=== PATIENT | female | born 1945 | race Caucasian/White ===

== ENCOUNTER 2016-04-10 09:00 | Outpatient (RCR) | payer MEDICARE, OTHER ==
[2016-01-11 05:12] VITALS: BP 141/68
[~2016-04-10 09:00] MED LIST: LANTUS100 U/ML SC; LISINOPRIL20 MG PO; NEXIUM; SYNTHROID25 MCG PO; [UNRECOGNIZED DRUG - OTHER] PO
[2016-06-14] MEDS ORDERED: CITALOPRAM40 MG PO (20:36)
[2016-06-14] MEDS ORDERED: AMITRIPTYLINE H50 M1 PO (20:36)
== END 2016-06-21 | disposition home or self-care (01) ==
LOC: PT
DX: Z47.89 Encounter for other orthopedic aftercare (principal)

== ENCOUNTER 2016-06-14 20:46 | Emergency (ER) | payer MEDICARE, OTHER ==
[~2016-06-14 20:46] MED LIST changes: +AMITRIPTYLINE H50 M1 PO; +CITALOPRAM40 MG PO
== END 2016-06-14 22:26 | disposition home or self-care (01) ==
LOC: ED 20:46
DX: S01.01XA Laceration without foreign body of scalp, initial encounter (principal); S50.02XA Contusion of left elbow, initial encounter; Z91.81 History of falling; W19.XXXA Unspecified fall, initial encounter; Y92.018 Other place in single-family (private) house as the place of occurrence of the external cause

== ENCOUNTER 2016-06-28 09:28 | Outpatient (RCR) | payer MEDICARE, OTHER ==
[2016-06-14 23:56] VITALS: BP 150/89
== END 2016-08-30 10:27 | disposition home or self-care (01) ==
LOC: PT 09:28
DX: Z47.89 Encounter for other orthopedic aftercare (principal); M25.571 Pain in right ankle and joints of right foot

== ENCOUNTER 2017-04-25 09:06 | Outpatient (RCR) | payer MEDICARE, OTHER ==
[2016-06-14 23:56] VITALS: BP 150/89
== END 2017-05-03 12:58 ==
LOC: OPPGERO 09:06
DX: F33.2 Major depressive disorder, recurrent severe without psychotic features (principal); F41.1 Generalized anxiety disorder

== ENCOUNTER 2017-05-04 09:00 | Outpatient (RCR) | payer MEDICARE, OTHER ==
[2016-06-14 23:56] VITALS: BP 150/89
== END 2017-06-01 15:33 ==
LOC: OPPGERO 09:00
DX: F33.2 Major depressive disorder, recurrent severe without psychotic features (principal)

== ENCOUNTER 2017-06-05 09:00 | Outpatient (RCR) | payer MEDICARE, OTHER ==
[2016-06-14 23:56] VITALS: BP 150/89
== END 2017-07-04 15:22 ==
LOC: OPPGERO 09:00
DX: F33.2 Major depressive disorder, recurrent severe without psychotic features (principal)

== ENCOUNTER 2017-07-05 10:41 | Outpatient (RCR) | payer MEDICARE, OTHER ==
[2016-06-14 23:56] VITALS: BP 150/89
== END 2017-08-01 14:16 ==
LOC: OPPGERO 10:41
DX: F33.2 Major depressive disorder, recurrent severe without psychotic features (principal); F41.1 Generalized anxiety disorder; E11.9 Type 2 diabetes mellitus without complications; Z79.4 Long term (current) use of insulin; E03.9 Hypothyroidism, unspecified; I10 Essential (primary) hypertension; Z88.1 Allergy status to other antibiotic agents; Z88.2 Allergy status to sulfonamides; Z88.8 Allergy status to other drugs, medicaments and biological substances

== ENCOUNTER 2017-08-02 10:13 | Outpatient (RCR) | payer MEDICARE, OTHER ==
[2016-06-14 23:56] VITALS: BP 150/89
== END 2017-08-31 11:16 ==
LOC: OPPGERO 10:13
DX: F33.2 Major depressive disorder, recurrent severe without psychotic features (principal); F41.1 Generalized anxiety disorder; I10 Essential (primary) hypertension; E03.9 Hypothyroidism, unspecified; E11.9 Type 2 diabetes mellitus without complications; Z79.4 Long term (current) use of insulin; Z90.5 Acquired absence of kidney; Z98.84 Bariatric surgery status; Z88.1 Allergy status to other antibiotic agents; Z88.8 Allergy status to other drugs, medicaments and biological substances; Z88.2 Allergy status to sulfonamides

== ENCOUNTER 2017-09-03 09:05 | Outpatient (RCR) | payer MEDICARE, OTHER ==
[2016-06-14 23:56] VITALS: BP 150/89
== END 2017-10-01 13:12 ==
LOC: OPPGERO 09:05
DX: F33.2 Major depressive disorder, recurrent severe without psychotic features (principal); F41.1 Generalized anxiety disorder; E11.65 Type 2 diabetes mellitus with hyperglycemia; Z79.4 Long term (current) use of insulin; I10 Essential (primary) hypertension; Z98.84 Bariatric surgery status; Z90.5 Acquired absence of kidney; E03.9 Hypothyroidism, unspecified; Z88.1 Allergy status to other antibiotic agents; Z88.2 Allergy status to sulfonamides; Z88.8 Allergy status to other drugs, medicaments and biological substances

== ENCOUNTER 2017-10-02 08:44 | Outpatient (RCR) | payer MEDICARE, OTHER ==
[2016-06-14 23:56] VITALS: BP 150/89
== END 2017-11-01 13:36 ==
LOC: OPPGERO 08:44
DX: F33.2 Major depressive disorder, recurrent severe without psychotic features (principal); F41.1 Generalized anxiety disorder; E11.9 Type 2 diabetes mellitus without complications; Z79.4 Long term (current) use of insulin; E03.9 Hypothyroidism, unspecified; I10 Essential (primary) hypertension; Z90.5 Acquired absence of kidney; Z98.890 Other specified postprocedural states; Z79.899 Other long term (current) drug therapy

== ENCOUNTER 2017-11-02 08:23 | Outpatient (RCR) | payer MEDICARE, OTHER ==
[2016-06-14 23:56] VITALS: BP 150/89
== END 2017-11-30 13:06 ==
LOC: OPPGERO 08:23
DX: F33.2 Major depressive disorder, recurrent severe without psychotic features (principal); F41.1 Generalized anxiety disorder; E11.9 Type 2 diabetes mellitus without complications; I10 Essential (primary) hypertension; Z79.4 Long term (current) use of insulin; Z79.899 Other long term (current) drug therapy; Z98.84 Bariatric surgery status; Z90.5 Acquired absence of kidney; Z74.9 Problem related to care provider dependency, unspecified; Z60.0 Problems of adjustment to life-cycle transitions

== ENCOUNTER 2017-12-03 09:36 | Outpatient (RCR) | payer MEDICARE, OTHER ==
[2016-06-14 23:56] VITALS: BP 150/89
== END 2018-01-01 14:17 ==
LOC: OPPGERO 09:36
DX: F33.1 Major depressive disorder, recurrent, moderate (principal); F41.1 Generalized anxiety disorder; E11.9 Type 2 diabetes mellitus without complications; I10 Essential (primary) hypertension; E03.9 Hypothyroidism, unspecified; Z98.84 Bariatric surgery status; Z90.5 Acquired absence of kidney; Z63.6 Dependent relative needing care at home; Z79.4 Long term (current) use of insulin; Z79.899 Other long term (current) drug therapy

== ENCOUNTER 2018-01-02 09:27 | Outpatient (RCR) | payer MEDICARE, OTHER ==
[2016-06-14 23:56] VITALS: BP 150/89
== END 2018-02-01 13:55 ==
LOC: OPPGERO 09:27
DX: F33.2 Major depressive disorder, recurrent severe without psychotic features (principal); F41.1 Generalized anxiety disorder; Z74.9 Problem related to care provider dependency, unspecified; E11.9 Type 2 diabetes mellitus without complications; E03.9 Hypothyroidism, unspecified; Z90.5 Acquired absence of kidney; I10 Essential (primary) hypertension; Z79.899 Other long term (current) drug therapy; Z79.4 Long term (current) use of insulin; Z98.84 Bariatric surgery status

== ENCOUNTER 2019-05-14 09:14 | Outpatient (RCR) | payer MEDICARE, OTHER ==
[2019-04-09 19:50] VITALS: BP 121/57
[~2019-05-14 09:14] MED LIST changes: +ESCITALOPRAM20 MG PO; +FOLIC ACID1 MG PO; +LANTUS PEN100 U/ML SQ; -LANTUS100 U/ML SC; +LOSARTAN POTASS50 M1 PO; +METHOTREXATE2.5 MG PO; +MYRBETRIQ50 MG PO; -NEXIUM; +NEXIUM20 MG PO; +NOVOLOG FLEX100 U/ML SQ; +SYNTHROID RP0.1 MG PO; -SYNTHROID25 MCG PO; +WELLBUTRIN XL150 M2 PO
== END 2019-06-03 12:46 ==
LOC: OPPGERO 09:14
DX: F39 Unspecified mood [affective] disorder (principal); M05.79 Rheumatoid arthritis with rheumatoid factor of multiple sites without organ or systems involvement; L40.9 Psoriasis, unspecified; I10 Essential (primary) hypertension; E11.9 Type 2 diabetes mellitus without complications; I25.10 Atherosclerotic heart disease of native coronary artery without angina pectoris; Z79.4 Long term (current) use of insulin; Z79.82 Long term (current) use of aspirin; Z79.01 Long term (current) use of anticoagulants; Z79.899 Other long term (current) drug therapy; Z95.5 Presence of coronary angioplasty implant and graft; Z98.61 Coronary angioplasty status

== ENCOUNTER 2019-06-05 11:01 | Outpatient (RCR) | payer MEDICARE, OTHER ==
[2019-04-09 19:50] VITALS: BP 121/57
== END 2019-07-04 14:06 | disposition still patient (30) ==
LOC: OPPGERO 11:01
DX: F39 Unspecified mood [affective] disorder (principal); F32.9 Major depressive disorder, single episode, unspecified; M05.79 Rheumatoid arthritis with rheumatoid factor of multiple sites without organ or systems involvement; L40.9 Psoriasis, unspecified; Z79.4 Long term (current) use of insulin; E11.9 Type 2 diabetes mellitus without complications; I25.10 Atherosclerotic heart disease of native coronary artery without angina pectoris; Z95.5 Presence of coronary angioplasty implant and graft; Z79.899 Other long term (current) drug therapy

== ENCOUNTER 2019-07-04 14:30 | Outpatient (RCR) | payer MEDICARE, OTHER ==
[2019-04-09 19:50] VITALS: BP 121/57
== END 2019-07-27 | disposition home or self-care (01) ==
LOC: CARDREHAB
DX: Z48.812 Encounter for surgical aftercare following surgery on the circulatory system (principal); Z95.5 Presence of coronary angioplasty implant and graft

== ENCOUNTER 2019-07-07 07:58 | Outpatient (RCR) | payer MEDICARE, OTHER ==
[2019-04-09 19:50] VITALS: BP 121/57
== END 2019-08-01 14:28 | disposition still patient (30) ==
LOC: OPPGERO 07:58
DX: F39 Unspecified mood [affective] disorder (principal); F32.9 Major depressive disorder, single episode, unspecified; M05.79 Rheumatoid arthritis with rheumatoid factor of multiple sites without organ or systems involvement; L40.9 Psoriasis, unspecified; I10 Essential (primary) hypertension; E11.9 Type 2 diabetes mellitus without complications; I25.10 Atherosclerotic heart disease of native coronary artery without angina pectoris; R45.6 Violent behavior; Z63.0 Problems in relationship with spouse or partner; Z79.01 Long term (current) use of anticoagulants; Z79.1 Long term (current) use of non-steroidal anti-inflammatories (NSAID); Z79.82 Long term (current) use of aspirin; Z79.899 Other long term (current) drug therapy; Z59.9 Problem related to housing and economic circumstances, unspecified; Z63.4 Disappearance and death of family member; Z95.5 Presence of coronary angioplasty implant and graft

== ENCOUNTER 2019-08-04 07:51 | Outpatient (RCR) | payer MEDICARE, OTHER ==
[2019-04-09 19:50] VITALS: BP 121/57
== END 2019-09-02 13:25 ==
LOC: OPPGERO 07:51
DX: F39 Unspecified mood [affective] disorder (principal); M05.79 Rheumatoid arthritis with rheumatoid factor of multiple sites without organ or systems involvement; L40.9 Psoriasis, unspecified; M17.0 Bilateral primary osteoarthritis of knee; E11.9 Type 2 diabetes mellitus without complications; I25.10 Atherosclerotic heart disease of native coronary artery without angina pectoris; R45.4 Irritability and anger; Z63.5 Disruption of family by separation and divorce; Z79.82 Long term (current) use of aspirin; Z79.4 Long term (current) use of insulin; Z79.899 Other long term (current) drug therapy; Z59.9 Problem related to housing and economic circumstances, unspecified; Z98.61 Coronary angioplasty status

== ENCOUNTER 2019-09-03 09:27 | Outpatient (RCR) | payer MEDICARE, OTHER ==
[2019-04-09 19:50] VITALS: BP 121/57
== END 2019-10-02 15:57 ==
LOC: OPPGERO 09:27
DX: F39 Unspecified mood [affective] disorder (principal); M05.79 Rheumatoid arthritis with rheumatoid factor of multiple sites without organ or systems involvement; L40.9 Psoriasis, unspecified; M17.0 Bilateral primary osteoarthritis of knee; I10 Essential (primary) hypertension; E11.9 Type 2 diabetes mellitus without complications; Z79.4 Long term (current) use of insulin; I25.10 Atherosclerotic heart disease of native coronary artery without angina pectoris; R45.4 Irritability and anger; Z59.9 Problem related to housing and economic circumstances, unspecified; Z63.5 Disruption of family by separation and divorce; Z95.5 Presence of coronary angioplasty implant and graft

== ENCOUNTER 2019-10-03 08:21 | Outpatient (RCR) | payer MEDICARE, OTHER ==
[2019-04-09 19:50] VITALS: BP 121/57
== END 2019-10-31 15:16 ==
LOC: OPPGERO 08:21
DX: F39 Unspecified mood [affective] disorder (principal); M05.79 Rheumatoid arthritis with rheumatoid factor of multiple sites without organ or systems involvement; L40.9 Psoriasis, unspecified; M70.70 Other bursitis of hip, unspecified hip; M17.0 Bilateral primary osteoarthritis of knee; E11.9 Type 2 diabetes mellitus without complications; I25.10 Atherosclerotic heart disease of native coronary artery without angina pectoris; Z79.82 Long term (current) use of aspirin; Z63.0 Problems in relationship with spouse or partner; Z63.5 Disruption of family by separation and divorce; Z79.4 Long term (current) use of insulin; Z79.899 Other long term (current) drug therapy; Z95.5 Presence of coronary angioplasty implant and graft

== ENCOUNTER 2019-11-03 09:26 | Outpatient (RCR) | payer MEDICARE, OTHER ==
[2019-04-09 19:50] VITALS: BP 121/57
== END 2019-12-02 16:09 | disposition still patient (30) ==
LOC: OPPGERO 09:26
DX: F31.9 Bipolar disorder, unspecified (principal); M06.9 Rheumatoid arthritis, unspecified; Z79.84 Long term (current) use of oral hypoglycemic drugs; Z79.4 Long term (current) use of insulin; Z79.899 Other long term (current) drug therapy

== ENCOUNTER → 2021-11-18 | Outpatient (CLI) | payer MEDICARE, OTHER | LOC: RAD 13:40 | DX: M79.89 Other specified soft tissue disorders (principal) ==

== ENCOUNTER → 2021-12-07 | Outpatient (REF) ==
[2021-12-07 15:32] LABS: HEMATOCRIT 35.7 % (37.0-47.0); HEMOGLOBIN 10.7 g/dL (12.5-16.0); MEAN PLATELET VOLUME 9.3 fl (7.4-10.4); RED BLOOD COUNT 4.53 M/mm3 (4.10-5.30); RED CELL DISTRIBUTION WIDTH 21.4 % (11.5-14.5); WHITE BLOOD COUNT 6.2 K/mm3 (4.8-10.8)
[2021-12-07 15:48] LABS: POTASSIUM 3.6 mmol/L (3.5-5.1)
[2021-12-07 15:49] LABS: CALCIUM 8.7 mg/dL (8.3-10.5)
[2021-12-07 15:56] LABS: MAGNESIUM 1.78 mg/dL (1.60-2.60)
== END ==
LOC: LAB 15:20
PROVIDERS: Internal Medicine
DX: A41.51 Sepsis due to Escherichia coli [E. coli] (principal)

== ENCOUNTER → 2022-01-03 | Outpatient (CLI) | payer MEDICARE, OTHER ==
[2022-01-03 12:39] LABS: URINE APPEARANCE HAZY; URINE BILIRUBIN NEGATIVE (NEGATIVE); URINE BLOOD NEGATIVE (NEGATIVE); URINE COLOR YELLOW; URINE GLUCOSE 50 mg/dL (NEGATIVE); URINE KETONE NEGATIVE (NEGATIVE); URINE LEUKOCYTE ESTERASE TRACE (NEGATIVE); URINE NITRATE NEGATIVE (NEGATIVE); URINE PROTEIN(semi-quant) NEGATIVE (NEGATIVE); URINE UROBILINOGEN NORMAL (NORMAL)
== END ==
LOC: LAB 11:28
PROVIDERS: Family Medicine
DX: R30.0 Dysuria (principal)

== ENCOUNTER → 2024-05-13 | Outpatient (CLI) | payer MEDICARE, OTHER | LOC: RAD 14:02 | DX: R07.81 Pleurodynia (principal); Z91.81 History of falling ==